=== PATIENT | female | born 1965 | race Caucasian/White ===

== ENCOUNTER 2016-07-07 18:22 | Emergency (ER) | payer OTHER ==
--- NOTE | 2016-07-07 18:50 | ED ---
General Adult HPI - General Chief complaint: Abdominal Pain Stated complaint: ibs problems Time Seen by Provider: 07/07/16 18:37 Source: patient, RN notes reviewed Mode of arrival: ambulatory Limitations: no limitations - History of Present Illness Initial comments: This 50-year-old female who presents with possible constipation. Patient states she has a history of IBS with diarrhea. Patient states she has not had a bowel movement for 3 days or more. Patient admits to increasing abdominal pain and some nausea. Patient denies any vomiting. Patient states she is not passing much gas. Patient states she tried one enema today and is having some loose bowel movements. Patient states it is becoming difficult to urinate but she has been able to urinate today. Patient denies dysuria or hematuria. Patient states she's had some loose stool, but is more loose than usual. Patient states she called her truck body builder apprentice who told her to come in for evaluation. Patient denies any recent fever, chills, shortness breath, chest pain, back pain, numbness, tingling, hematuria, headache, or visual changes, or any other complaints. - Related Data Home Medications Medication Instructions Recorded Confirmed Aspirin/Sod Bicarb/Citric Acid 2 tab PO Q6H PRN 07/07/16 07/07/16 [Muriel[place] Original Tab Eff] Cholecalciferol [Vitamin D3] 2,000 unit PO DAILY 07/07/16 07/07/16 L.acidoph,Paracasei, B.lactis 1 cap PO DAILY 07/07/16 07/07/16 [Probiotic] Levothyroxine Sodium [Synthroid] 100 mcg PO DAILY 07/07/16 07/07/16 Pnv with Ca,No.72/Iron/FA 1 tab PO DAILY 07/07/16 07/07/16 [ Plus Tablet] Previous Rx's Medication Instructions Recorded Bisacodyl [Dulcolax] 10 mg PO DAILY 3 Days 07/07/16 Magnesium Citrate 150 ml PO BID 1 Days 07/07/16 Allergies Allergy/AdvReac Type Severity Reaction Status Date / Time No Known Allergies Allergy Verified 07/07/16 19:12 Review of Systems ROS Statement: Those systems with pertinent positive or pertinent negative responses have been documented in the HPI. ROS Other: All systems not noted in ROS Statement are negative. Past Medical History Additional Past Medical History / Comment(s): KHAI bennett History of Any Multi-Drug Resistant Organisms: None Reported Past Surgical History: No Surgical Hx Reported Past Psychological History: No Psychological Hx Reported Smoking Status: Never smoker Past Alcohol Use History: None Reported Past Drug Use History: None Reported General Exam - General Exam Comments Initial Comments: General: The patient is awake and alert, in no distress, and does not appear acutely ill. Eye: Pupils are equal, round and reactive to light, extra-ocular movements are intact. No nystagmus. There is normal conjunctiva bilaterally. No signs of icterus. Ears: TMs pink and pearly with intact cone of light bilaterally. Normal external ear canals Nose: Nasal turbinates pink and moist Mouth and throat: There are moist mucous membranes and no oral lesions. Neck: The neck is supple, there is no tenderness or JVD. Cardiovascular: There is a regular rate and rhythm. No murmur, rub or gallop is appreciated. Respiratory: Lungs are clear to auscultation, respirations are non-labored, breath sounds are equal. No wheezes, stridor, rales, or rhonchi. Gastrointestinal: Mild generalized tenderness. Soft, non-distended abdomen without masses or organomegaly noted. There is no rebound or guarding present. No CVA tenderness. Bowel sounds are unremarkable. Musculoskeletal: Normal ROM, no tenderness. Strength 5/5. Sensation intact. Radial pulses equal bilaterally 2+. Neurological: A&O x 3. CN II-XII intact, There are no obvious motor or sensory deficits. Coordination appears grossly intact. Speech is normal. Skin: Skin is warm and dry and no rashes or lesions are noted. Psychiatric: Cooperative, appropriate mood & affect, normal judgment. Limitations: no limitations Course Vital Signs 07/07/16 18:28 Temperature 98 F Pulse Rate 90 Respiratory 20 Rate Blood Pressure 130/72 O2 Sat by Pulse 97 Oximetry Medical Decision Making - Medical Decision Making This is a 50-year-old female presents with possible constipation. On physical exam patient is well-appearing and afebrile. Mild generalized tenderness. Soft , non-distende abdomen without masses or organomegaly noted. There is no rebound or guarding present. No CVA tenderness. Bowel sounds are unremarkable. Labs were drawn and reviewed. A UA was done. Urine cultures are pending. Blood noted in urine and patient states she is having a flareup of hemorrhoids due to her recent constipation. A KUB was done and reviewed showing: Nonacute abdomen. No sign of constipation. Report by Dr. Cueva. Elevated white count noted. The CT of the abdomen and pelvis was done with contrast showing: There is evidence of mild constipation. Hemangioma in the liver. Report by Dr. Cueva. Elevated white blood cell count noted. No certain etiology, an infectious etiology is less likely. Discussed the results with patient. Discussed increasing fluid intake due to IV contrast and constipation. Patient is given fluids and EC today. I discussed possibility for enema in the EC today or discharge with mag citrate and Dulcolax. Patient prefers to be discharged and try these medications at home. Discussed patient will be discharged with prescriptions for mag citrate and Dulcolax. Discussed return parameters. I discussed Tylenol and Motrin for any pain. Discussed that patient should follow up with PCP in one to 2 days or return to the EC for any worsening symptoms or for any further concerns. Patient was receptive to this plan and patient will be discharged home. - Lab Data Result diagrams: 07/07/16 19:00 07/07/16 19:00 Lab Results 07/07/16 07/07/16 07/07/16 Range/Units 19:00 19:00 19:00 WBC 18.0 H (3.8-10.6) k/uL RBC 4.49 (3.80-5.40) m/uL Hgb 14.7 (11.4-16.0) gm/dL Hct 43.1 (34.0-46.0) % MCV 95.8 (80.0-100.0) fL MCH 32.8 (25.0-35.0) pg MCHC 34.2 (31.0-37.0) g/dL RDW 12.6 (11.5-15.5) % Plt Count 279 (150-450) k/uL Neutrophils % 93 % Lymphocytes % 4 % Monocytes % 2 % Eosinophils % 1 % Basophils % 0 % Neutrophils # 16.7 H (1.3-7.7) k/uL Lymphocytes # 0.7 L (1.0-4.8) k/uL Monocytes # 0.4 (0-1.0) k/uL Eosinophils # 0.1 (0-0.7) k/uL Basophils # 0.0 (0-0.2) k/uL PT (9.0-12.0) sec INR (<1.1) APTT (22.0-30.0) sec Sodium 141 (137-145) mmol/L Potassium 4.0 (3.5-5.1) mmol/L Chloride 103 (98-107) mmol/L Carbon Dioxide 22 (22-30) mmol/L Anion Gap 16 mmol/L BUN 19 H (7-17) mg/dL Creatinine 0.71 (0.52-1.04) mg/dL Est GFR (MDRD) Af Amer >60 (>60 ml/min/1.73 sqM) Est GFR (MDRD) Non-Af >60 (>60 ml/min/1.73 sqM) Glucose 106 H (74-99) mg/dL Plasma Lactic Acid Sanjeev 2.1 H (0.7-2.0) mmol/L Calcium 9.7 (8.4-10.2) mg/dL Total Bilirubin 1.3 (0.2-1.3) mg/dL AST 24 (14-36) U/L ALT 23 (9-52) U/L Alkaline Phosphatase 77 (38-126) U/L Total Protein 8.0 (6.3-8.2) g/dL Albumin 4.7 (3.5-5.0) g/dL Amylase 93 (30-110) U/L Lipase 142 (23-300) U/L Urine Color Urine Appearance (Clear) Urine pH (5.0-8.0) Ur Specific [place] (1.001-1.035) Urine Protein (Negative) Urine Glucose (UA) (Negative) Urine Ketones (Negative) Urine Blood (Negative) Urine Nitrite (Negative) Urine Bilirubin (Negative) Urine Urobilinogen (<2.0) mg/dL Ur Leukocyte Esterase (Negative) Urine RBC (0-5) /hpf Urine WBC (0-5) /hpf Ur Squamous Epith Cells (0-4) /hpf Urine Mucus (None) /hpf 07/07/16 07/07/16 Range/Units 19:00 19:00 WBC (3.8-10.6) k/uL RBC (3.80-5.40) m/uL Hgb (11.4-16.0) gm/dL Hct (34.0-46.0) % MCV (80.0-100.0) fL MCH (25.0-35.0) pg MCHC (31.0-37.0) g/dL RDW (11.5-15.5) % Plt Count (150-450) k/uL Neutrophils % % Lymphocytes % % Monocytes % % Eosinophils % % Basophils % % Neutrophils # (1.3-7.7) k/uL Lymphocytes # (1.0-4.8) k/uL Monocytes # (0-1.0) k/uL Eosinophils # (0-0.7) k/uL Basophils # (0-0.2) k/uL PT 10.4 (9.0-12.0) sec INR 1.0 (<1.1) APTT 23.9 (22.0-30.0) sec Sodium (137-145) mmol/L Potassium (3.5-5.1) mmol/L Chloride (98-107) mmol/L Carbon Dioxide (22-30) mmol/L Anion Gap mmol/L BUN (7-17) mg/dL Creatinine (0.52-1.04) mg/dL Est GFR (MDRD) Af Amer (>60 ml/min/1.73 sqM) Est GFR (MDRD) Non-Af (>60 ml/min/1.73 sqM) Glucose (74-99) mg/dL Plasma Lactic Acid Sanjeev (0.7-2.0) mmol/L Calcium (8.4-10.2) mg/dL Total Bilirubin (0.2-1.3) mg/dL AST (14-36) U/L ALT (9-52) U/L Alkaline Phosphatase (38-126) U/L Total Protein (6.3-8.2) g/dL Albumin (3.5-5.0) g/dL Amylase (30-110) U/L Lipase (23-300) U/L Urine Color Yellow Urine Appearance Cloudy H (Clear) Urine pH 7.5 (5.0-8.0) Ur Specific [place] 1.018 (1.001-1.035) Urine Protein Trace H (Negative) Urine Glucose (UA) Negative (Negative) Urine Ketones 3+ H (Negative) Urine Blood Small H (Negative) Urine Nitrite Negative (Negative) Urine Bilirubin Negative (Negative) Urine Urobilinogen <2.0 (<2.0) mg/dL Ur Leukocyte Esterase Negative (Negative) Urine RBC 20 H (0-5) /hpf Urine WBC 1 (0-5) /hpf Ur Squamous Epith Cells 2 (0-4) /hpf Urine Mucus Rare H (None) /hpf Disposition Clinical Impression: Constipation Disposition: HOME SELF-CARE Condition: Good Instructions: Constipation (ED) Additional Instructions: Please use mag citrate as prescribed. Please use Dulcolax as prescribed. Please be sure to drink plenty of fluids. Please use medication as discussed. Please follow-up with family doctor in the next 2 days of symptoms have not improved. Please return to emergency room if the symptoms increase or worsen or for any other concerns. Prescriptions: Bisacodyl [Dulcolax] 10 mg PO DAILY 3 Days Magnesium Citrate 150 ml PO BID 1 Days Referrals: None,Stated [Primary Care Provider] - 1-2 days Time of Disposition: 21:10
[2016-07-07 19:15] LABS: Basophils % (A) 0 %; CHCM 33.6; Eosinophils # (A) 0.1 k/uL (0-0.7); Eosinophils % (A) 1 %; HCT 43.1 % (34.0-46.0); HDW 2.36; HGB 14.7 gm/dL (11.4-16.0); Luc # (Auto) 0.08; Luc % (Auto) 0; Lymphocytes # (A) 0.7 k/uL (1.0-4.8); Lymphocytes % (A) 4 %; MCH 32.8 pg (25.0-35.0); MCHC 34.2 g/dL (31.0-37.0); MCV 95.8 fL (80.0-100.0); Mean Platelet Volume 6.9; Monocytes # (A) 0.4 k/uL (0-1.0); Monocytes % (A) 2 %; Neutrophils # (A) 16.7 k/uL (1.3-7.7); Neutrophils % (A) 93 %; RBC 4.49 m/uL (3.80-5.40); RDW 12.6 % (11.5-15.5)
[2016-07-07 19:23] LABS: ALT 23 U/L (9-52); AST 24 U/L (14-36); Alkaline Phosphatase 77 U/L (38-126); Amylase 93 U/L (30-110); Anion Gap 16 mmol/L; Blood Urea Nitrogen 19 mg/dL (7-17); Calcium 9.7 mg/dL (8.4-10.2); Carbon Dioxide 22 mmol/L (22-30); Chloride 103 mmol/L (98-107); Glucose 106 mg/dL (74-99); Non-African American GFR(MDRD) >60 (>60 ml/min/1.73 sqM); Sodium 141 mmol/L (137-145); Total Bilirubin 1.3 mg/dL (0.2-1.3)
--- NOTE | 2016-07-07 19:34 | XR ---
EXAMINATION TYPE: XR KUB DATE OF EXAM: 07/07/2016 7:28 PM COMPARISON: NONE HISTORY: Constipation TECHNIQUE: 2 views FINDINGS: Bowel gas pattern is normal. There is no sign of intestinal obstruction or pneumoperitoneum . Fecal pattern is normal. Lung bases are clear. There are no pathologic calcifications over the kidn eys. There are small phleboliths in the pelvis on the left side. Bony structures appear intact. There is no sign of a mass. IMPRESSION: Nonacute abdomen. No sign of constipation.
[2016-07-07] MEDS ORDERED: SODIUM CHLORIDE 0.9% 500 ML IV ONE (19:36)
[2016-07-07] MEDS ORDERED: RX INFO: IV CONTRAST WAS GIVEN 1 EACH MISC MISCELLANE PRN (19:48)
[2016-07-07 19:51] LABS: Appearance,Urine Cloudy (Clear); Bilirubin,Urine Negative (Negative); Glucose,Urine (UA) Negative (Negative); Ketones,Urine 3+ (Negative); Leukocyte Esterase,Urine Negative (Negative); Mucus,Urine Rare /hpf; Nitrite,Urine Negative (Negative); PH, Urine 7.5 (5.0-8.0); Particle Count 2043; Protein,Urine Trace (Negative); RBC,Urine 20 /hpf (0-5); Specific Gravity,Urine 1.018 (1.001-1.035); Squamous Epithelial Cell,Urine 2 /hpf (0-4); UA Billing (MACRO vs. MICRO) MICRO; Urobilinogen,Urine <2.0 mg/dL (<2.0); WBC,Urine 1 /hpf (0-5)
[2016-07-07 20:04] LABS: Partial Thromboplastin Time 23.9 sec (22.0-30.0); Prothrombin Time 10.4 sec (9.0-12.0)
--- NOTE | 2016-07-07 20:51 | CT ---
EXAMINATION TYPE: CT abdomen pelvis w con DATE OF EXAM: 07/07/2016 8:42 PM COMPARISON: NONE HISTORY: Pt states of constipation today. Hx of IBS and shivam. CT DLP: 361.6 mGycm Automated exposure control for dose reduction was used. TECHNIQUE: Helical acquisition of images was performed from the lung bases through the pelvis. CONTRAST: Performed without Oral Contrast and with IV Contrast, patient injected with 100 mL of Omnipaque 300. FINDINGS: The lung bases are clear. There is no pleural effusion. Heart size is normal. There is a 2 cm area of enhancement in the inferior right lobe of the liver con sistent with hemangioma. Spleen appears normal. Bile ducts are not dilated. There is no pancreatic ma ss. Gallbladder appears normal. There is no adrenal mass. There is some hyperplasia of the left adrenal gland. Kidneys show satisfact ory contrast opacification. There is no hydronephrosis. There is a 1 cm cortical cyst on the lower po le right kidney. There is no retroperitoneal adenopathy. There is retained fecal material in the rectum. I see no intestinal wall thickening. Bladder distends smoothly. Uterus is retroverted. I see no bony destructive process. IMPRESSION: THERE IS EVIDENCE OF MILD CONSTIPATION. HEMANGIOMA IN THE LIVER.
[2016-07-07 22:29] VITALS: BP 124/71; PULSE 82; RESP 16; TEMP 99
== END 2016-07-07 22:28 | disposition home or self-care (01) ==
LOC: EC 18:22
DX: K59.00 Constipation, unspecified (principal); R11.0 Nausea; R19.7 Diarrhea, unspecified; K58.9 Irritable bowel syndrome, unspecified; E06.3 Autoimmune thyroiditis; Z79.899 Other long term (current) drug therapy
CPT/HCPCS: 36415; 80053; 82150; 83605; 83690; 85025; 85610; 85730; 81001; 87040; 87086; 74000; 74177; 99284; Q9967